=== PATIENT | male | born 1955 | race African-American/Black ===

== ENCOUNTER 2019-04-04 12:11 | Emergency (ER) | payer MEDICAID ==
[~2019-04-04] VITALS: Ht 175.3 cm; Wt 89.0 kg
[~2019-04-04 12:11] MED LIST: AMLO10TA80 PO; BENA40TA9 PO; CYCL5TAB PO; FAMO20TA8 PO; GABA-290 PO; HYDR-4009 PO; HYDR-459 PO; MELO-106 PO; TAMS0.4C31 PO
[2019-04-04] MEDS ORDERED: SODIUM CHLORIDE 0.9% 1,000 ML IV ONE (12:55)
[2019-04-04] MEDS ORDERED: MORPHINE SULFATE 4 MG/ML CPJ (NOT FOR IM USE) IV STA (12:55)
[2019-04-04] MEDS ORDERED: ONDANSETRON HCL 4MG/2ML INJ IV STA (12:55)
[2019-04-04 13:08] LABS: BASOPHILS % 0.6 % (0.0-2.0); EOSINOPHILS % 0.2 % (0.0-5.0); HEMOGLOBIN. 14.1 g/dL (14.0-18.0); LYMPHOCYTES % 13.3 % (20.0-50.0); MEAN CORPUSCULAR HEMOGLOBIN 29.4 pg (28.0-32.0); MEAN CORPUSCULAR VOLUME 85.9 fL (80.0-94.0); MEAN PLATELET VOLUME 7.8 fl (7.4-10.4); MONOCYTES % 4.8 % (2.0-8.0); NEUTROPHILS % 81.1 % (40.0-76.0); PLATELET 315 x1000/uL (130-400); RED BLOOD CELL COUNT 4.78 mill/uL (4.7-6.1); RED CELL DISTRIBUTION WIDTH 13.7 % (11.6-14.6)
[2019-04-04 13:12] LABS: CHLORIDE 105 mEq/L (98-107)
[2019-04-04 13:16] LABS: ETHANOL BLOOD < 10 mg/dL
[2019-04-04 13:21] LABS: BETA HYDROXYBUTYRATE 0.1 mMol/L (0.0-0.3)
[2019-04-04] MEDS ORDERED: ASPI-1158 MT (13:47)
[2019-04-04 14:07] LABS: CLARITY URINE CLEAR (CLEAR); COLOR URINE YELLOW (YELLOW); KETONES URINE NEGATIVE (NEGATIVE); LEUKOCYTE ESTERASE URINE TRACE (NEGATIVE); NITRITE URINE NEGATIVE (NEGATIVE); OCCULT BLOOD URINE NEGATIVE (NEGATIVE); PH URINE >=9.0 (4.5-8.0); PROTEIN URINE TRACE (NEGATIVE); SPECIFIC GRAVITY URINE 1.018 (1.005-1.030); UROBILINOGEN URINE 0.2 E.U./dL (0.2-1.0)
[2019-04-04 14:34] LABS: *AMPHETAMINES SCREEN URINE NEGATIVE (NEGATIVE); *BARBITURATES SCREEN URINE NEGATIVE (NEGATIVE); *BENZODIAZEPINES SCREEN URINE NEGATIVE (NEGATIVE); *COCAINE SCREEN URINE NEGATIVE (NEGATIVE)
[2019-04-04 14:35] LABS: CANNABINOID URINE SCREEN PRESUMTIVE POSITIVE (NEGATIVE); METHADONE URINE SCREEN NEGATIVE (NEGATIVE); OPIATES URINE SCREEN NEGATIVE (NEGATIVE); PHENCYCLIDINE URINE SCREEN NEGATIVE (NEGATIVE)
[2019-04-04] MEDS ORDERED: IOHEXOL-300 100 ML BOTTLE ONE (14:51)
[2019-04-04 17:33] VITALS: BP 128/68
== END 2019-04-04 17:22 | disposition home or self-care (01) ==
LOC: ER 12:11 → CANBEDREQ 17:31
DX: K29.70 Gastritis, unspecified, without bleeding (principal); I10 Essential (primary) hypertension
CPT/HCPCS: 36415; 71045; 74177; 80053; 80305; 80320; 81003; 82010; 83690; 84484; 85025; 85610; 93005; 96361; 96374; 96375; 99284; J2270; J2405; J7030; Q9967; Z7610; G0480

== ENCOUNTER 2019-09-06 11:06 | Inpatient (IN) | payer MEDICAID ==
[~2019-09-06] VITALS: Ht 175.3 cm; Wt 88.0 kg
[~2019-09-06 11:06] MED LIST changes: +ASPI-1158 MT
[2019-09-06] MEDS ORDERED: MAGNESIUM/ALUMINUM HYDROXIDE/SIMETHICONE 30ML UDC PO STA (12:09)
[2019-09-06] MEDS ORDERED: VISCOUS LIDOCAINE 2% 15 ML UDC PO STA (12:09)
[2019-09-06] MEDS ORDERED: DICYCLOMINE 10 MG/5 ML ORAL SYR PO STA (12:09)
[2019-09-06 13:11] LABS: BASOPHILS % 0.2 % (0.0-2.0); EOSINOPHILS % 0.1 % (0.0-5.0); HEMOGLOBIN. 13.3 g/dL (14.0-18.0); LYMPHOCYTES % 9.5 % (20.0-50.0); MEAN CORPUSCULAR HEMOGLOBIN 29.9 pg (28.0-32.0); MEAN CORPUSCULAR VOLUME 87.5 fL (80.0-94.0); MEAN PLATELET VOLUME 7.7 fl (7.4-10.4); MONOCYTES % 3.8 % (2.0-8.0); NEUTROPHILS % 86.4 % (40.0-76.0); PLATELET 303 x1000/uL (130-400); RED BLOOD CELL COUNT 4.46 mill/uL (4.7-6.1); RED CELL DISTRIBUTION WIDTH 13.8 % (11.6-14.6)
[2019-09-06 13:20] LABS: PROTHROMBIN TIME 10.5 sec (9.6-11.0)
[2019-09-06 13:22] LABS: CHLORIDE 102 mEq/L (98-107)
[2019-09-06 13:27] LABS: ETHANOL BLOOD < 10 mg/dL
[2019-09-06 14:27] LABS: CLARITY URINE CLEAR (CLEAR); COLOR URINE YELLOW (YELLOW); KETONES URINE 1+ (NEGATIVE); LEUKOCYTE ESTERASE URINE NEGATIVE (NEGATIVE); NITRITE URINE NEGATIVE (NEGATIVE); OCCULT BLOOD URINE NEGATIVE (NEGATIVE); PH URINE >=9.0 (4.5-8.0); PROTEIN URINE 1+ (NEGATIVE); UROBILINOGEN URINE 0.2 E.U./dL (0.2-1.0)
[2019-09-06 15:00] LABS: *BARBITURATES SCREEN URINE NEGATIVE (NEGATIVE); *COCAINE SCREEN URINE NEGATIVE (NEGATIVE)
[2019-09-06 15:01] LABS: CANNABINOID URINE SCREEN PRESUMTIVE POSITIVE (NEGATIVE); OPIATES URINE SCREEN NEGATIVE (NEGATIVE); PHENCYCLIDINE URINE SCREEN NEGATIVE (NEGATIVE)
[2019-09-06 15:02] LABS: *AMPHETAMINES SCREEN URINE NEGATIVE (NEGATIVE); METHADONE URINE SCREEN NEGATIVE (NEGATIVE)
[2019-09-06 15:03] LABS: *BENZODIAZEPINES SCREEN URINE NEGATIVE (NEGATIVE)
[2019-09-06] MEDS ORDERED: ASPIRIN 325MG TABLET PO ONE (15:30)
[2019-09-06] MEDS ORDERED: IPRATROPIUM/ALBUTEROL 0.5-3(2.5)MG/3ML NEB NEB PRN (17:45)
[2019-09-06] MEDS ORDERED: HYDROCODONE/ACETAMINOPHEN 5/325MG TABLET PO ONE (17:45)
[2019-09-06] MEDS ORDERED: ACETAMINOPHEN 650MG/20.3ML UDC GT PRN (17:45)
[2019-09-06] MEDS ORDERED: DOCUSATE SODIUM 100MG CAPSULE PO PRN (17:45)
[2019-09-06] MEDS ORDERED: CLONIDINE 0.1MG TABLET PO PRN (17:45)
[2019-09-06] MEDS ORDERED: ENOXAPARIN 40MG/0.4ML SYR SUBCUT SCH (17:45)
[2019-09-06] MEDS: ONDANSETRON HCL 4MG/2ML INJ IV PRN (17:53)
[2019-09-06] MEDS: MAGNESIUM/ALUMINUM HYDROXIDE/SIMETHICONE 30ML UDC PO PRN (17:53)
[2019-09-06 20:54] LABS: CHLORIDE 102 mEq/L (98-107)
[2019-09-06 21:03] LABS: CREATINE KINASE 209 IU/L (39-308)
[2019-09-06 21:05] LABS: CREATINE KINASE MB FRACTION < 1.0 ng/mL (0.5-3.6)
[2019-09-06 21:30] VITALS: BP 140/93
[2019-09-06] MEDS: ENOXAPARIN 40MG/0.4ML SYR SUBCUT SCH (23:07)
[2019-09-06] MEDS: HYDROCODONE/ACETAMINOPHEN 5/325MG TABLET PO PRN (23:08)
[2019-09-07] MEDS ORDERED: DEXTROSE 50% WATER 50ML SYRINGE IV PRN (02:00)
[2019-09-07] MEDS: BLOOD SUGAR DIAGNOSTIC STRIP TEST SCH ×4 (06:34→21:00)
[2019-09-07] MEDS: INSULIN LISPRO 100 UNITS/ML SUBCUT SCH ×4 (06:49→21:00)
[2019-09-07 08:00] VITALS: BP 142/98
[2019-09-07 08:28] LABS: BASOPHILS % 0.4 % (0.0-2.0); HEMOGLOBIN. 13.4 g/dL (14.0-18.0); LYMPHOCYTES % 22.9 % (20.0-50.0); MEAN CORPUSCULAR HEMOGLOBIN 29.5 pg (28.0-32.0); MEAN CORPUSCULAR VOLUME 88.3 fL (80.0-94.0); MEAN PLATELET VOLUME 7.7 fl (7.4-10.4); MONOCYTES % 8.4 % (2.0-8.0); NEUTROPHILS % 67.3 % (40.0-76.0); PLATELET 308 x1000/uL (130-400); RED BLOOD CELL COUNT 4.53 mill/uL (4.7-6.1); RED CELL DISTRIBUTION WIDTH 13.5 % (11.6-14.6)
[2019-09-07 08:53] LABS: LDL CHOLESTEROL 128 mg/dL (5-100)
[2019-09-07 08:54] LABS: CREATINE KINASE 171 IU/L (39-308); HDL CHOLESTEROL 32 mg/dL (40-59)
[2019-09-07 08:58] LABS: CREATINE KINASE MB FRACTION < 1.0 ng/mL (0.5-3.6)
[2019-09-07] MEDS: HYDROCODONE/ACETAMINOPHEN 5/325MG TABLET PO PRN ×2 (09:37→18:42)
[2019-09-07] MEDS: ONDANSETRON HCL 4MG/2ML INJ IV PRN ×2 (09:39→21:26)
[2019-09-07 12:00] VITALS: BP 123/85
[2019-09-07] MEDS: METOCLOPRAMIDE HCL 5MG TABLET PO SCH ×2 (12:47→21:26)
[2019-09-07] MEDS: DILTIAZEM HCL 60MG TABLET PO SCH ×2 (12:48→21:45)
[2019-09-07] MEDS: BENAZEPRIL 10MG TABLET PO SCH (12:49)
[2019-09-07] MEDS ORDERED: POTASSIUM CHLORIDE 20MEQ TABLET SR PO NR (13:27)
[2019-09-07 15:19] VITALS: BP 119/79
[2019-09-07 20:00] VITALS: BP 112/81
[2019-09-07] MEDS ORDERED: ATORVASTATIN CALCIUM 40MG TABLET PO SCH (21:00)
[2019-09-07] MEDS: ENOXAPARIN 40MG/0.4ML SYR SUBCUT SCH (21:27)
[2019-09-07] MEDS: FAMOTIDINE 20MG TABLET PO SCH (21:27)
[2019-09-07] MEDS: MAGNESIUM/ALUMINUM HYDROXIDE/SIMETHICONE 30ML UDC PO PRN (22:07)
[2019-09-08] VITALS: BP 98/76
[2019-09-08 04:00] VITALS: BP 121/82
[2019-09-08] MEDS: METOCLOPRAMIDE HCL 5MG TABLET PO SCH ×2 (04:09→12:06)
[2019-09-08] MEDS: DILTIAZEM HCL 60MG TABLET PO SCH (06:25)
[2019-09-08 07:21] LABS: CHLORIDE 102 mEq/L (98-107)
[2019-09-08 07:24] LABS: BASOPHILS % 0.9 % (0.0-2.0); HEMATOCRIT. 38.7 % (42.0-52.0); HEMOGLOBIN. 13.1 g/dL (14.0-18.0); LYMPHOCYTES % 38.8 % (20.0-50.0); MEAN CORPUSCULAR HEMOGLOBIN 29.9 pg (28.0-32.0); MEAN CORPUSCULAR VOLUME 88.4 fL (80.0-94.0); MEAN PLATELET VOLUME 7.3 fl (7.4-10.4); MONOCYTES % 9.8 % (2.0-8.0); NEUTROPHILS % 47.5 % (40.0-76.0); PLATELET 291 x1000/uL (130-400); RED BLOOD CELL COUNT 4.38 mill/uL (4.7-6.1); RED CELL DISTRIBUTION WIDTH 13.5 % (11.6-14.6)
[2019-09-08 08:00] VITALS: BP 114/82
[2019-09-08] MEDS: FAMOTIDINE 20MG TABLET PO SCH (08:28)
[2019-09-08] MEDS: BENAZEPRIL 10MG TABLET PO SCH (08:29)
[2019-09-08] MEDS ORDERED: TAMSULOSIN HCL 0.4MG SR CAPSULE PO SCH (09:00)
[2019-09-08] MEDS: BLOOD SUGAR DIAGNOSTIC STRIP TEST SCH ×2 (11:37→12:10)
[2019-09-08 12:00] VITALS: BP 133/83
[2019-09-08] MEDS: INSULIN LISPRO 100 UNITS/ML SUBCUT SCH ×2 (12:05→12:40)
[2019-09-08] MEDS ORDERED: DILT60TA35 PO (12:29)
[2019-09-08] MEDS ORDERED: METO5TAB2 PO (12:29)
[2019-09-08] MEDS ORDERED: LIP40 PO (12:29)
[2019-09-08 13:10] VITALS: BP 133/83
== END 2019-09-08 15:56 | disposition home or self-care (01) | DRG 48 ==
LOC: ER 11:06 → 8WST 17:32 → ENRESERV 19:10
PROVIDERS: ADMIT Internal Medicine; ATTEND Internal Medicine
DX: E11.43 Type 2 diabetes mellitus with diabetic autonomic (poly)neuropathy (principal); E87.1 Hypo-osmolality and hyponatremia; D64.9 Anemia, unspecified; E78.5 Hyperlipidemia, unspecified; E87.6 Hypokalemia; F12.90 Cannabis use, unspecified, uncomplicated; G89.29 Other chronic pain; I10 Essential (primary) hypertension; I42.2 Other hypertrophic cardiomyopathy; K31.84 Gastroparesis; K57.90 Diverticulosis of intestine, part unspecified, without perforation or abscess without bleeding; Z79.84 Long term (current) use of oral hypoglycemic drugs; Z79.899 Other long term (current) drug therapy
CPT/HCPCS: 36415; 71045; 74176; 80048; 80061; 80305; 80320; 81003; 82550; 82553; 82962; 83735; 84443; 84484; 93005; 93306; 93970; 99285; J1650; J1815; J2405; J8597; G0480

== ENCOUNTER 2021-05-10 13:56 | Emergency (ER) | payer MEDICAID ==
[~2021-05-10] VITALS: Ht 175.3 cm; Wt 86.0 kg
[~2021-05-10 13:56] MED LIST changes: -ASPI-1158 MT; +ASPI-1406 MT; +DILT60TA35 PO; +LIP40 PO; +METO5TAB2 PO
[2021-05-10] MEDS ORDERED: TOPUD MT (15:12)
[2021-05-10] MEDS ORDERED: OFLO5DRO4 LEFT EAR (15:12)
[2021-05-10] MEDS ORDERED: IBUPROFEN 400MG TABLET PO ONE (15:15)
[2021-05-10] MEDS ORDERED: ACETAMINOPHEN 325MG TABLET PO ONE (15:15)
[2021-05-10 16:46] VITALS: BP 118/88
== END 2021-05-10 16:49 | disposition home or self-care (01) ==
LOC: ER 13:56
DX: H60.92 Unspecified otitis externa, left ear (principal); F12.90 Cannabis use, unspecified, uncomplicated; I10 Essential (primary) hypertension; E11.9 Type 2 diabetes mellitus without complications; Z90.49 Acquired absence of other specified parts of digestive tract
CPT/HCPCS: 99283

== ENCOUNTER 2022-06-18 23:40 | Inpatient (IN) | payer MEDICAID, OTHER ==
[~2022-06-18] VITALS: Ht 175.3 cm; Wt 81.4 kg
[~2022-06-18 23:40] MED LIST changes: -BENA40TA9 PO; +BENA40TA91 PO; +OFLO5DRO4 LEFT EAR; +TOPUD MT
[2022-06-19] MEDS ORDERED: ASPIRIN 81MG TABLET PO ONE (08:45)
[2022-06-19 09:32] LABS: BASOPHILS % 0.2 % (0.0-2.0); EOSINOPHILS % 0.1 % (0.0-5.0); HEMATOCRIT. 40.8 % (42.0-52.0); HEMOGLOBIN. 13.7 g/dL (14.0-18.0); LYMPHOCYTES % 10.3 % (20.0-50.0); MEAN CORPUSCULAR HEMOGLOBIN 29.1 pg (28.0-32.0); MEAN CORPUSCULAR VOLUME 86.5 fL (80.0-94.0); MEAN PLATELET VOLUME 7.3 fl (7.4-10.4); MONOCYTES % 3.3 % (2.0-8.0); NEUTROPHILS % 86.1 % (40.0-76.0); PLATELET 374 x1000/uL (130-400); RED BLOOD CELL COUNT 4.72 mill/uL (4.7-6.1)
[2022-06-19 09:41] LABS: CHLORIDE 101 mEq/L (98-107)
[2022-06-19] MEDS ORDERED: KETOROLAC 15MG/ML VIAL IV ONE (10:30)
[2022-06-19] MEDS ORDERED: ONDANSETRON HCL 4MG/2ML INJ IV ONE (10:30)
[2022-06-19] MEDS ORDERED: ACETAMINOPHEN 325MG TABLET PO PRN ×2 (13:30)
[2022-06-19] MEDS ORDERED: DEXTROSE 50% WATER 50ML SYRINGE IV PRN (13:30)
[2022-06-19] MEDS ORDERED: IPRATROPIUM/ALBUTEROL 0.5-3(2.5)MG/3ML NEB HHN PRN (13:30)
[2022-06-19] MEDS ORDERED: CLONIDINE 0.1MG TABLET PO PRN (13:30)
[2022-06-19] MEDS ORDERED: LORAZEPAM 0.5MG TABLET PO PRN (13:30)
[2022-06-19] MEDS ORDERED: ONDANSETRON HCL 4MG/2ML INJ IV PRN (13:30)
[2022-06-19] MEDS ORDERED: NALOXONE HCL 0.4MG/ML VIAL IV PRN (13:45)
[2022-06-19] MEDS: HYDROMORPHONE HCL/PF 2MG/ML CPJ IV PRN ×2 (14:46→22:13)
[2022-06-19] MEDS: PANTOPRAZOLE SODIUM 40 MG/VIAL IV SCH (14:46)
[2022-06-19] MEDS: METOCLOPRAMIDE HCL 10MG/2ML VIAL IV SCH ×2 (14:46→20:56)
[2022-06-19] MEDS: SODIUM CHLORIDE 0.9% 1,000 ML IV SCH ×2 (14:48→20:56)
[2022-06-19 15:36] LABS: CLARITY URINE CLEAR (CLEAR); COLOR URINE YELLOW (YELLOW); KETONES URINE 1+ (NEGATIVE); LEUKOCYTE ESTERASE URINE NEGATIVE (NEGATIVE); NITRITE URINE NEGATIVE (NEGATIVE); OCCULT BLOOD URINE NEGATIVE (NEGATIVE); PROTEIN URINE NEGATIVE (NEGATIVE); SPECIFIC GRAVITY URINE 1.025 (1.005-1.030)
[2022-06-19 15:46] LABS: *AMPHETAMINES SCREEN URINE NEGATIVE (NEGATIVE); *BARBITURATES SCREEN URINE NEGATIVE (NEGATIVE); *BENZODIAZEPINES SCREEN URINE NEGATIVE (NEGATIVE); *COCAINE SCREEN URINE NEGATIVE (NEGATIVE); CANNABINOID URINE SCREEN PRESUMTIVE POSITIVE (NEGATIVE); METHADONE URINE SCREEN NEGATIVE (NEGATIVE); OPIATES URINE SCREEN NEGATIVE (NEGATIVE); PHENCYCLIDINE URINE SCREEN NEGATIVE (NEGATIVE)
[2022-06-19] MEDS: BLOOD SUGAR DIAGNOSTIC STRIP TEST SCH ×2 (17:58→21:00)
[2022-06-19 18:00] VITALS: BP 148/96
[2022-06-19 18:21] VITALS: BP 148/96
[2022-06-19 20:00] VITALS: BP 133/67
[2022-06-19] MEDS: TAMSULOSIN HCL 0.4MG SR CAPSULE PO SCH (20:56)
[2022-06-19] MEDS: INSULIN LISPRO 100 UNITS/ML SUBCUT SCH (21:00)
[2022-06-20] VITALS: BP 120/72
[2022-06-20] MEDS: METOCLOPRAMIDE HCL 10MG/2ML VIAL IV SCH ×4 (00:14→17:52)
[2022-06-20 04:00] VITALS: BP 132/78
[2022-06-20] MEDS: HYDROMORPHONE HCL/PF 2MG/ML CPJ IV PRN (05:36)
[2022-06-20] MEDS: BLOOD SUGAR DIAGNOSTIC STRIP TEST SCH ×4 (06:23→20:53)
[2022-06-20 06:28] LABS: BASOPHILS % 0.9 % (0.0-2.0); EOSINOPHILS % 1.7 % (0.0-5.0); HEMATOCRIT. 34.9 % (42.0-52.0); HEMOGLOBIN. 11.9 g/dL (14.0-18.0); LYMPHOCYTES % 26.6 % (20.0-50.0); MEAN CORPUSCULAR HEMOGLOBIN 29.4 pg (28.0-32.0); MONOCYTES % 11.6 % (2.0-8.0); NEUTROPHILS % 59.2 % (40.0-76.0); PLATELET 294 x1000/uL (130-400); RED BLOOD CELL COUNT 4.06 mill/uL (4.7-6.1); RED CELL DISTRIBUTION WIDTH 13.7 % (11.6-14.6)
[2022-06-20] MEDS: INSULIN LISPRO 100 UNITS/ML SUBCUT SCH ×5 (06:31→20:57)
[2022-06-20 07:08] LABS: CHLORIDE 107 mEq/L (98-107)
[2022-06-20 07:12] LABS: FOLIC ACID (FOLATE) SERUM 9.7 ng/mL (>5.38)
[2022-06-20 07:29] LABS: AMYLASE 143 IU/L (25-115); TOTAL IRON BINDING CAPACITY 286 ug/dL (250-450)
[2022-06-20 08:00] VITALS: BP 130/80
[2022-06-20] MEDS: DILTIAZEM HCL 180MG CAPSULE CD 24HR PO SCH (09:00)
[2022-06-20] MEDS: PANTOPRAZOLE SODIUM 40 MG/VIAL IV SCH (09:00)
[2022-06-20] MEDS: SODIUM CHLORIDE 0.9% 1,000 ML IV SCH ×2 (09:58→20:52)
[2022-06-20 12:00] VITALS: BP 135/80
[2022-06-20 16:00] VITALS: BP 130/82
[2022-06-20 20:00] VITALS: BP 145/78
[2022-06-20] MEDS: TAMSULOSIN HCL 0.4MG SR CAPSULE PO SCH (20:52)
[2022-06-21] VITALS: BP 133/79
[2022-06-21] MEDS: METOCLOPRAMIDE HCL 10MG/2ML VIAL IV SCH ×4 (00:49→17:24)
[2022-06-21 04:00] VITALS: BP 112/63
[2022-06-21 06:08] LABS: BASOPHILS % 1.1 % (0.0-2.0); HEMATOCRIT. 35.7 % (42.0-52.0); LYMPHOCYTES % 34.4 % (20.0-50.0); MEAN CORPUSCULAR HEMOGLOBIN 29.2 pg (28.0-32.0); MEAN CORPUSCULAR VOLUME 86.6 fL (80.0-94.0); MEAN PLATELET VOLUME 7.1 fl (7.4-10.4); MONOCYTES % 10.5 % (2.0-8.0); PLATELET 295 x1000/uL (130-400); RED BLOOD CELL COUNT 4.12 mill/uL (4.7-6.1); RED CELL DISTRIBUTION WIDTH 13.5 % (11.6-14.6)
[2022-06-21 06:37] LABS: CHLORIDE 107 mEq/L (98-107)
[2022-06-21] MEDS: BLOOD SUGAR DIAGNOSTIC STRIP TEST SCH ×3 (06:58→16:49)
[2022-06-21] MEDS: INSULIN LISPRO 100 UNITS/ML SUBCUT SCH ×3 (07:24→17:09)
[2022-06-21 08:00] VITALS: BP 108/66
[2022-06-21] MEDS: PANTOPRAZOLE SODIUM 40 MG/VIAL IV SCH (09:38)
[2022-06-21] MEDS: DILTIAZEM HCL 180MG CAPSULE CD 24HR PO SCH (09:39)
[2022-06-21 11:53] LABS: AMYLASE 118 IU/L (25-115)
[2022-06-21 12:00] VITALS: BP 128/80
[2022-06-21] MEDS: SODIUM CHLORIDE 0.9% 1,000 ML IV SCH (14:52)
[2022-06-21 16:00] VITALS: BP 133/85
[2022-06-21 17:04] VITALS: BP 133/85
== END 2022-06-21 18:42 | disposition home or self-care (01) | DRG 282 ==
LOC: ER 23:40 → 4WST 06-19 12:33 → ENRESERV 06-19 17:06 → 6EST 06-19 19:01
PROVIDERS: ADMIT Internal Medicine; ATTEND Internal Medicine
DX: K85.90 Acute pancreatitis without necrosis or infection, unspecified (principal); E11.43 Type 2 diabetes mellitus with diabetic autonomic (poly)neuropathy; K31.84 Gastroparesis; K76.0 Fatty (change of) liver, not elsewhere classified; D64.9 Anemia, unspecified; E78.5 Hyperlipidemia, unspecified; F12.90 Cannabis use, unspecified, uncomplicated; I10 Essential (primary) hypertension; K21.9 Gastro-esophageal reflux disease without esophagitis; I49.9 Cardiac arrhythmia, unspecified; N20.0 Calculus of kidney; N40.1 Benign prostatic hyperplasia with lower urinary tract symptoms; R33.9 Retention of urine, unspecified; F41.9 Anxiety disorder, unspecified; Z79.4 Long term (current) use of insulin; Z79.899 Other long term (current) drug therapy
CPT/HCPCS: 36415; 71045; 76700; 80048; 80053; 80061; 80305; 81003; 82150; 82607; 82728; 82746; 82962; 83036; 83540; 83550; 83735; 83880; 84100; 84443; 84484; 85025; 93005; 99285; C9113; J1170; J1885; J2405; J2765

== ENCOUNTER 2022-11-06 17:11 | Emergency (ER) | payer MEDICARE, MEDICAID ==
[~2022-11-06] VITALS: Ht 175.3 cm; Wt 91.0 kg
[2022-11-06] MEDS ORDERED: ACETAMINOPHEN 325MG TABLET PO ONE ×2 (18:30→23:45)
[2022-11-06 19:06] LABS: BASOPHILS % 0.1 % (0.0-2.0); HEMATOCRIT. 38.2 % (42.0-52.0); LYMPHOCYTES % 8.3 % (20.0-50.0); MEAN CORPUSCULAR VOLUME 87.8 fL (80.0-94.0); MEAN PLATELET VOLUME 7.5 fl (7.4-10.4); MONOCYTES % 4.2 % (2.0-8.0); NEUTROPHILS % 87.4 % (40.0-76.0); PLATELET 340 x1000/uL (130-400); RED BLOOD CELL COUNT 4.35 mill/uL (4.7-6.1)
[2022-11-06 19:23] LABS: CHLORIDE 104 mEq/L (98-107)
[2022-11-06] MEDS ORDERED: ACETAMINOPHEN 325MG TABLET PO NR (23:45)
[2022-11-07] MEDS ORDERED: ONDANSETRON 4MG ODT PO STA
[2022-11-07] MEDS ORDERED: MAGNESIUM/ALUMINUM HYDROXIDE/SIMETHICONE 30ML UDC PO STA
[2022-11-07] MEDS ORDERED: DICYCLOMINE 10 MG/5 ML ORAL SYR PO STA
[2022-11-07] MEDS ORDERED: ONDA4TAB50 MT (00:11)
[2022-11-07] MEDS ORDERED: OMEP40CA20 MT (00:11)
[2022-11-07 02:00] VITALS: BP 138/87
== END 2022-11-07 02:06 | disposition home or self-care (01) ==
LOC: ER 17:11
DX: R07.89 Other chest pain (principal); R10.0 Acute abdomen; R11.2 Nausea with vomiting, unspecified; R05.8 Other specified cough; Z20.822 Contact with and (suspected) exposure to COVID-19; R94.31 Abnormal electrocardiogram [ECG] [EKG]
CPT/HCPCS: 36415; 71045; 80053; 83690; 84484; 85025; 87426; 87804; 93005; 99285; C9803; Q0162

== ENCOUNTER 2024-04-10 17:57 | Emergency (ER) | payer MEDICAID, MEDICARE ==
[~2024-04-10] VITALS: Ht 175.3 cm; Wt 86.2 kg
[~2024-04-10 17:57] MED LIST changes: +OMEP40CA20 MT; +ONDA4TAB50 MT
[2024-04-10 18:00] VITALS: PULSE 93; RESP 20
[2024-04-10 18:07] VITALS: BP 182/95; TEMP 98.7; O2SAT 100
[2024-04-10 19:31] LABS: BASOPHILS % 0.4 % (0.0-2.0); EOSINOPHILS % 0.2 % (0.0-5.0); HEMATOCRIT. 40.3 % (42.0-52.0); HEMOGLOBIN. 13.7 g/dL (14.0-18.0); LYMPHOCYTES % 9.5 % (20.0-50.0); MEAN CORPUSCULAR HEMOGLOBIN 29.5 pg (28.0-32.0); MEAN CORPUSCULAR VOLUME 86.7 fL (80.0-94.0); MEAN PLATELET VOLUME 7.5 fl (7.4-10.4); MONOCYTES % 2.9 % (2.0-8.0); PLATELET 354 x1000/uL (130-400); RED BLOOD CELL COUNT 4.65 mill/uL (4.7-6.1); RED CELL DISTRIBUTION WIDTH 14.4 % (11.6-14.6); WHITE BLOOD COUNT 8.9 x1000/uL (4.5-11.0)
[2024-04-10 19:42] LABS: PROTHROMBIN TIME 10.8 sec (9.6-11.0)
[2024-04-10] MEDS ORDERED: DICYCLOMINE HCL 10MG CAPSULE PO ONE (19:45)
[2024-04-10] MEDS ORDERED: ONDANSETRON 4MG ODT PO ONE (19:45)
[2024-04-10] MEDS ORDERED: LOPERAMIDE HCL 2MG CAPSULE PO ONE (19:45)
[2024-04-10 19:58] LABS: CHLORIDE 100 mEq/L (98-107); POTASSIUM 4.3 mEq/L (3.5-5.1); SODIUM 137 mEq/L (136-145)
[2024-04-10 19:59] LABS: CALCIUM 10.9 mg/dL (8.7-10.4); CARBON DIOXIDE 26 mEq/L (21-32)
[2024-04-10 20:04] LABS: CREATININE 1.2 mg/dL (0.6-1.3); GLUCOSE 221 mg/dL (70-105); UREA NITROGEN BLOOD 14 mg/dL (9-23)
[2024-04-10 20:06] LABS: ALANINE AMINOTRANSFERASE 18 IU/L (10-49); ASPARTATE AMINOTRANSFERASE 17 IU/L (<34); BILIRUBIN DIRECT 0.1 mg/dL (<=3.0); BILIRUBIN TOTAL 0.5 mg/dL (0.1-1.0)
[2024-04-10 20:07] LABS: PROTEIN TOTAL 8.3 g/dL (6.0-8.3)
[2024-04-10 20:10] LABS: TROPONIN I HIGH SENSITIVITY < 4 ng/L (3.0-53)
[2024-04-10] MEDS ORDERED: DICY-18 MT (20:35)
[2024-04-10] MEDS ORDERED: LOPE2CAP MT (20:35)
[2024-04-10] MEDS ORDERED: ONDA4TAB11 PO (20:35)
[2024-04-10] MEDS: ONDANSETRON 4MG ODT PO NR (21:37)
[2024-04-10] MEDS: DICYCLOMINE HCL 10MG CAPSULE PO NR (21:37)
[2024-04-10] MEDS: LOPERAMIDE HCL 2MG CAPSULE PO NR (21:37)
== END 2024-04-10 21:40 | disposition home or self-care (01) ==
LOC: ER 17:57
DX: K52.9 Noninfective gastroenteritis and colitis, unspecified (principal); E11.9 Type 2 diabetes mellitus without complications; I10 Essential (primary) hypertension; Z90.49 Acquired absence of other specified parts of digestive tract; Z98.890 Other specified postprocedural states
CPT/HCPCS: 99284; 71045; 80076; 80048; 83880; 83690; 85025; 85610; 84484; 36415; Q0162

== ENCOUNTER 2025-01-07 13:55 | Emergency (ER) | payer MEDICARE, MEDICAID ==
[~2025-01-07] VITALS: Ht 175.3 cm; Wt 89.0 kg
[~2025-01-07 13:55] MED LIST changes: -CYCL5TAB PO; +CYCL5TAB3 PO; +DICY-18 MT; -DILT60TA35 PO; +LEVO-65 MT; +LOPE2CAP MT; +METR-167 MT; -OFLO5DRO4 LEFT EAR; +POTA-81 MT
[2025-01-07 14:17] VITALS: O2SAT 98
[2025-01-07 15:12] LABS: HEMATOCRIT. 40.6 % (42.0-52.0); HEMOGLOBIN. 13.6 g/dL (14.0-18.0); MEAN CORPUSCULAR HEMOGLOBIN 29.3 pg (28.0-32.0); MEAN CORPUSCULAR HGB CONC 33.4 g/dL (31.0-37.0); MEAN CORPUSCULAR VOLUME 87.8 fL (80.0-94.0); MEAN PLATELET VOLUME 7.9 fl (7.4-10.4); PLATELET 315 x1000/uL (130-400); RED BLOOD CELL COUNT 4.63 mill/uL (4.7-6.1); RED CELL DISTRIBUTION WIDTH 13.8 % (11.6-14.6); WHITE BLOOD COUNT 9.8 x1000/uL (4.5-11.0)
[2025-01-07 15:18] LABS: CHLORIDE 100 mEq/L (98-107); POTASSIUM 3.8 mEq/L (3.5-5.1); SODIUM 133 mEq/L (136-145)
[2025-01-07 15:19] LABS: CARBON DIOXIDE 23 mEq/L (21-32)
[2025-01-07 15:20] LABS: CALCIUM 10.3 mg/dL (8.7-10.4)
[2025-01-07 15:21] LABS: DIFFERENTIAL COMMENT 1
[2025-01-07 15:24] LABS: CREATININE 1.3 mg/dL (0.6-1.3); GLUCOSE 231 mg/dL (70-105)
[2025-01-07 15:25] LABS: UREA NITROGEN BLOOD 10 mg/dL (9-23)
[2025-01-07 15:26] LABS: ALANINE AMINOTRANSFERASE 15 IU/L (10-49); ASPARTATE AMINOTRANSFERASE 15 IU/L (<34); BILIRUBIN DIRECT 0.1 mg/dL (<=3.0)
[2025-01-07 15:27] LABS: BILIRUBIN TOTAL 0.6 mg/dL (0.1-1.0)
[2025-01-07 15:28] LABS: TROPONIN I HIGH SENSITIVITY < 4 ng/L (3.0-53)
[2025-01-07 16:14] LABS: PLATELET ESTIMATE NORMAL
[2025-01-07 18:14] LABS: CLARITY URINE CLOUDY (CLEAR); COLOR URINE YELLOW (YELLOW); GLUCOSE URINE TRACE (NEGATIVE); KETONES URINE TRACE (NEGATIVE); LEUKOCYTE ESTERASE URINE NEGATIVE (NEGATIVE); NITRITE URINE NEGATIVE (NEGATIVE); OCCULT BLOOD URINE NEGATIVE (NEGATIVE); PROTEIN URINE 2+ (NEGATIVE); SPECIFIC GRAVITY URINE 1.025 (1.005-1.030); UROBILINOGEN URINE 0.2 E.U./dL (0.2-1.0)
[2025-01-07] MEDS: SODIUM CHLORIDE 0.9% 500 ML IV ONE (18:20)
[2025-01-07 18:23] LABS: BACTERIA URINE FEW; RBC URINE NONE SEEN /hpf (0-2); SQUAMOUS EPITHELIAL CELL URINE NONE SEEN /lpf (RARE/1+); YEAST URINE NONE SEEN
[2025-01-07] MEDS: ONDANSETRON 4MG ODT PO NR (18:37)
[2025-01-07] MEDS: ACETAMINOPHEN 325MG TABLET PO NR (18:37)
[2025-01-07 21:25] VITALS: BP 161/91; PULSE 96; RESP 18; TEMP 36.9; O2SAT 99
== END 2025-01-07 21:32 | disposition home or self-care (01) ==
LOC: ER 13:55
DX: R11.2 Nausea with vomiting, unspecified (principal); E11.9 Type 2 diabetes mellitus without complications; I10 Essential (primary) hypertension; F12.90 Cannabis use, unspecified, uncomplicated; Z79.82 Long term (current) use of aspirin; Z79.899 Other long term (current) drug therapy; Z87.19 Personal history of other diseases of the digestive system; Z90.49 Acquired absence of other specified parts of digestive tract
CPT/HCPCS: 99291; 74176; 80076; 80048; 81003; 82962; 83690; 85025; 84484; 36415; 71045; 93005; Q0162